=== PATIENT | female | born 1965 | race Caucasian/White ===

== ENCOUNTER 2020-05-14 03:39 | Inpatient (IN) | payer OTHER ==
[~2020-05-14] VITALS: Ht 175.3 cm; Wt 105.0 kg
[~2020-05-14 03:39] MED LIST: ATENOLOL; CEPHALEXIN500 M1 PO; EFFEXOR25 M1 PO; PERCOCET 325 MG1 TA2 PO; TOPAKAX; YAZ 28 3 MG-0.01 TAB PO; ZANTAC
[2020-05-14 05:00] LABS: BASO % 0.3 % (0.0-2.0); EOS # 0.1 (0.0-0.7); EOS % 0.6 % (0-4.0); GRAN # 6.9 (1.4-6.5); GRAN % 78.2 % (42.2-75.2); HEMATOCRIT 38.3 % (37.0-47.0); HEMOGLOBIN 12.2 g/dl (12.5-16.0); LYMPH % 11.3 % (20.0-51.0); MEAN CELL VOLUME 88 fl (80.0-100.0); MEAN CORPUSCULAR HEMOGLOBIN 28 pg (27.0-31.0); MEAN CORPUSCULAR HGB CONC 32 g/dl (33.0-37.0); MEAN PLATELET VOLUME 10.6 fl (7.4-10.4); MONO # 0.8 (0.1-0.6); MONO % 9.1 % (1.7-9.3); PLATELET COUNT 223 K/mm3 (130-400); RED BLOOD COUNT 4.36 M/mm3 (4.10-5.30); REDCELL DISTRIBUTION WIDTH-CV 13.2 % (11.5-14.5)
[2020-05-14 05:14] LABS: ALANINE AMINOTRANSFERASE 204 U/L (4-34); ALBUMIN 4.6 gm/dL (3.5-5.0); ALKALINE PHOSPHATASE 139 U/L (50-136); ANION GAP 8 mmol/L (7-16); AST,SGOT 424 U/L (15-37); BILIRUBIN,TOTAL 0.8 mg/dL (0.0-1.0); BLOOD UREA NITROGEN 27 mg/dL (7-17); CALCIUM 9.6 mg/dL (8.4-10.2); CARBON DIOXIDE 27 mmol/L (22-30); CHLORIDE 103 mmol/L (98-107); CREATININE, serum 0.88 (0.52-1.25); GLUCOSE 150 mg/dL (74-106); POTASSIUM 4.1 mmol/L (3.4-5.0); SODIUM 139 mmol/L (137-145); TOTAL PROTEIN 7.7 gm/dL (6.4-8.2)
[2020-05-14 05:17] LABS: C-REACTIVE PROTEIN < 0.5 mg/dL (0.0-0.9)
[2020-05-14 05:22] LABS: TROPONIN-I < 0.012 ng/mL (0.000-0.035)
[2020-05-14 05:47] LABS: PROTHROMBIN TIME 11.3 SECONDS (9.7-12.8)
[2020-05-14 06:22] LABS: LIPASE 45427 U/L (23-300)
[2020-05-14] MEDS ORDERED: INDERAL LA120 MG PO (09:33)
[2020-05-14] MEDS ORDERED: PRILOSEC 20MG20 MG PO (09:34)
[2020-05-14] MEDS ORDERED: CYMBALTA 60MG60 MG PO (09:35)
[2020-05-14] MEDS ORDERED: WELLBUTRIN XL300 M1 PO (09:35)
[2020-05-14] MEDS ORDERED: ONE-A-DAY ESSE1 EACH PO (09:36)
[2020-05-14] MEDS ORDERED: MELATIN 3 MG-11 TAB PO (09:36)
[2020-05-14 09:56] VITALS: BP 97/80; PULSE 50; TEMP 97.7
--- NOTE | 2020-05-14 09:57 | NUR ---
Patient admitted to room 322-2. Alert & oriented. Med rec reviewed. 5 page completed. Patient Npo, denies nausea. Pain manged at this time. [facility] team made aware of her arrival.
[2020-05-14 11:05] VITALS: BP 100/68; PULSE 53; TEMP 98.1
--- NOTE | 2020-05-14 11:13 | NUR ---
rounded & saw patient
[2020-05-14 13:32] LABS: COLLECTION METHOD CLEAN CATCH
[2020-05-14 13:41] LABS: PH 5 (5-8); SQUAMOUS EPITHELIAL 0-2 /hpf; URINE APPEARANCE Clear; URINE BACTERIA None Seen /hpf; URINE BILIRUBIN Negative (NEGATIVE); URINE BLOOD Negative (NEGATIVE); URINE COLOR Yellow; URINE GLUCOSE Negative (NEGATIVE); URINE KETONE Negative (NEGATIVE); URINE LEUKOCYTE ESTERASE Negative (NEGATIVE); URINE NITRATE Negative (NEGATIVE); URINE PROTEIN(semi-quant) Negative (NEGATIVE); URINE RBC 0-2 /hpf
[2020-05-14 16:24] VITALS: BP 93/69; PULSE 69; TEMP 98.3
--- NOTE | 2020-05-14 18:09 | NUR ---
Patient resting in bed. Spouse at bedside. Denies pain & nausea. IVF as ordered.
[2020-05-15 05:15] VITALS: BP 130/76; PULSE 66; TEMP 98
--- NOTE | 2020-05-15 06:01 | NUR ---
Pt. slept well through the night. Pt. remains A&OX3. Pt. reports headache this am. Denies need for pain meds. Pt. denies further needs, call light within reach.
[2020-05-15 06:58] LABS: ALBUMIN 3.4 gm/dL (3.5-5.0); BILIRUBIN,TOTAL 0.5 mg/dL (0.0-1.0); CALCIUM 8.7 mg/dL (8.4-10.2); CREATININE, serum 0.66 (0.52-1.25); POTASSIUM 3.9 mmol/L (3.4-5.0); TOTAL PROTEIN 5.8 gm/dL (6.4-8.2)
[2020-05-15 07:21] VITALS: BP 119/56; PULSE 74; TEMP 97.4
--- NOTE | 2020-05-15 07:36 | NUR ---
Patient sitting up in bed. She reports slight increase in abdominal pain with increased po intake. She also continues to have headache. Home medication given this am as well as ice tea, hoping caffiene will help. Pain rating 2/10. She denies nausea. Labs improved. Will monitor
[2020-05-15 09:21] LABS: BASO % 0.7 % (0.0-2.0); EOS # 0.1 (0.0-0.7); EOS % 1.7 % (0-4.0); GRAN # 2.6 (1.4-6.5); GRAN % 63.9 % (42.2-75.2); LYMPH % 24.9 % (20.0-51.0); MEAN CELL VOLUME 89 fl (80.0-100.0); MEAN CORPUSCULAR HEMOGLOBIN 29 pg (27.0-31.0); MEAN CORPUSCULAR HGB CONC 32 g/dl (33.0-37.0); MONO # 0.3 (0.1-0.6); MONO % 8.3 % (1.7-9.3); PLATELET COUNT 152 K/mm3 (130-400); RED BLOOD COUNT 3.85 M/mm3 (4.10-5.30); REDCELL DISTRIBUTION WIDTH-CV 13.3 % (11.5-14.5)
[2020-05-15 09:50] LABS: HEMATOCRIT 34.3 % (37.0-47.0)
--- NOTE | 2020-05-15 11:55 | NUR ---
Plan to return home with Yoel as care support. SW met with patient and in room with patients permission to discuss PHI. Patient reports that she resides locally with spouse and does not use any DME. Patient reports that her PCP is Renetta Smith at [facility], and obtains medications at [facility]. will transport home, patient denies having any cocnerns with ADLs. Patient denies having a need for any additional skill or hh services. Patient reports that her is the legal DPOA. Patient denies any PT/OT concerns or needs. SW educated patient on services available to her in community.
[2020-05-15 11:56] VITALS: BP 118/75; PULSE 54; TEMP 98.3
--- NOTE | 2020-05-15 12:10 | NUR ---
Patient feeling better & Ivf decreased per orders. Continues with clears. pain resolved. Will monitor
[2020-05-15 16:48] VITALS: BP 114/82; PULSE 67; TEMP 97.7
--- NOTE | 2020-05-15 17:15 | NUR ---
Spoke to Katrin in Radiology, who checked in on ultrasound not being read. She completed ordered & notifed child welfare consultant radiologist who will get ultrasound read. Informed . Patient resting in bed. Reports increased appetite. continues with clears. Pain managed. Will monitor.
[2020-05-15 21:10] VITALS: BP 131/78; PULSE 57; TEMP 97.9
--- NOTE | 2020-05-15 21:12 | NUR ---
Pt. sitting up in bed at this time. Pt. is A&OX3, assessment complete. IV to lt. ac patent, IV fluids infusing per orders. Pt. denies pain or other needs, call light within reach.
[2020-05-16 06:54] LABS: BASO % 0.5 % (0.0-2.0); EOS # 0.1 (0.0-0.7); EOS % 1.2 % (0-4.0); GRAN # 2.8 (1.4-6.5); GRAN % 64.4 % (42.2-75.2); HEMOGLOBIN 10.3 g/dl (12.5-16.0); MEAN CELL VOLUME 88 fl (80.0-100.0); MEAN CORPUSCULAR HEMOGLOBIN 29 pg (27.0-31.0); MEAN CORPUSCULAR HGB CONC 32 g/dl (33.0-37.0); MEAN PLATELET VOLUME 11.1 fl (7.4-10.4); MONO # 0.5 (0.1-0.6); MONO % 10.4 % (1.7-9.3); PLATELET COUNT 153 K/mm3 (130-400); RED BLOOD COUNT 3.61 M/mm3 (4.10-5.30)
[2020-05-16 06:57] LABS: HEMATOCRIT 31.8 % (37.0-47.0)
[2020-05-16 07:12] LABS: CALCIUM 9.1 mg/dL (8.4-10.2); CREATININE, serum 0.71 (0.52-1.25); POTASSIUM 3.6 mmol/L (3.4-5.0)
[2020-05-16 07:42] VITALS: BP 128/77; PULSE 70; TEMP 98.6
--- NOTE | 2020-05-16 07:55 | NUR ---
Sitting up in bed with eyes open. Alert and oriented x4. Rates pain 1/10 in abd at this time, explains that the pain increases when she eats. Rates pain with and right after eating breakfast a 4/10. Patient says that she will try to get up and ambulate in halls more today. Is hoping to go home. Denies additional needs at this time.
[2020-05-16 11:25] VITALS: BP 126/67; PULSE 65; TEMP 98.1
--- NOTE | 2020-05-16 11:45 | NUR ---
Dr. Roque in room seeing patient and discussing plan for lap kimi tomorrow. Patient and spouse able to ask questions. Patient is clear on the plan, explain that I will bring in consent for her to sign. Patient denies pain or needs at this time.
--- NOTE | 2020-05-16 13:12 | NUR ---
Patient requests to shower at this time. Assisted into shower by BIRGIT Lozano.
--- NOTE | 2020-05-16 14:10 | NUR ---
Review consent for procedure with patient. Denies questions and signs consent. Will place in chart. Patient sitting up in chair watching TV. Spouse in room with the patient. Denies additional needs at this time.
[2020-05-16 15:43] VITALS: BP 113/74; PULSE 62; TEMP 98.1
--- NOTE | 2020-05-16 16:45 | NUR ---
Sitting up in bed watching TV and working on computer. Denies pain or needs at this time. IV fluids decreased to 60mL/hr as ordered.
[2020-05-16 19:36] VITALS: BP 117/74; PULSE 58; TEMP 98.5
--- NOTE | 2020-05-16 20:40 | NUR ---
Pt. sitting up in bed. Pt. is A&OX3, assessment complete. Iv to lt. ac remains patent, IV fluids infusing per orders. Pt. denies pain or other needs, call light within reach.
[2020-05-17] VITALS (12 sets, daily range): BP systolic 110–135; BP diastolic 40–78; PULSE 50–81; TEMP 97.7–98.9
[2020-05-17 06:46] LABS: BASO % 0.5 % (0.0-2.0); EOS # 0.1 (0.0-0.7); EOS % 1.4 % (0-4.0); GRAN # 2.9 (1.4-6.5); GRAN % 65.4 % (42.2-75.2); HEMOGLOBIN 10.2 g/dl (12.5-16.0); LYMPH # 0.9 (1.2-3.4); LYMPH % 20.5 % (20.0-51.0); MEAN CELL VOLUME 88 fl (80.0-100.0); MEAN CORPUSCULAR HEMOGLOBIN 28 pg (27.0-31.0); MEAN CORPUSCULAR HGB CONC 32 g/dl (33.0-37.0); MONO # 0.5 (0.1-0.6); MONO % 11.7 % (1.7-9.3); PLATELET COUNT 156 K/mm3 (130-400); RED BLOOD COUNT 3.61 M/mm3 (4.10-5.30)
[2020-05-17 06:47] LABS: HEMATOCRIT 31.6 % (37.0-47.0)
[2020-05-17 07:02] LABS: ALBUMIN 3.8 gm/dL (3.5-5.0); BILIRUBIN,TOTAL 0.7 mg/dL (0.0-1.0); CREATININE, serum 0.85 (0.52-1.25); POTASSIUM 3.6 mmol/L (3.4-5.0); TOTAL PROTEIN 6.5 gm/dL (6.4-8.2)
--- NOTE | 2020-05-17 10:31 | NUR ---
Patient down to OR.
--- NOTE | 2020-05-17 13:15 | NUR ---
Patient up from OR. alert and oriented. Lap sites x5 with edges well approximated. Denies further needs at this time.
--- NOTE | 2020-05-17 19:01 | NUR ---
Pt is at her bedside.Pt has no concerns at this time. Pt has her call light within reach and her bed is in lowest position.
--- NOTE | 2020-05-17 19:12 | NUR ---
Patient has done well since up from OR. Spouse remains at bedside. Has been up ambulating in room. Continues to deny pain. Denies further needs at this time. Reported off to cage shift manager.
[2020-05-18] VITALS: BP 112/73; PULSE 54; TEMP 98.4
[2020-05-18 03:49] VITALS: BP 134/80; PULSE 59; TEMP 97.8
--- NOTE | 2020-05-18 03:58 | NUR ---
Pt called out with complaints of shoulder and abdomen back. Pt rated her pain at a 8 out of 10. Pt was given IV pain medication at this time.
--- NOTE | 2020-05-18 06:22 | NUR ---
Pt is currently resting in bed. Pt stated that her pain is much better. Pt called out earlier and stated that she was having some really bad pain. On a scale of 1-10 she rated her pain at a 8. Pt was given pain medication at this time. Pt has her call light within reach.
[2020-05-18 06:30] LABS: BASO % 0.1 % (0.0-2.0); GRAN # 8.3 (1.4-6.5); GRAN % 86.7 % (42.2-75.2); LYMPH # 0.7 (1.2-3.4); LYMPH % 7.1 % (20.0-51.0); MEAN CELL VOLUME 90 fl (80.0-100.0); MEAN CORPUSCULAR HGB CONC 32 g/dl (33.0-37.0); MEAN PLATELET VOLUME 11.1 fl (7.4-10.4); MONO # 0.6 (0.1-0.6); MONO % 5.7 % (1.7-9.3); PLATELET COUNT 160 K/mm3 (130-400); RED BLOOD COUNT 3.36 M/mm3 (4.10-5.30)
[2020-05-18 06:31] LABS: HEMATOCRIT 30.3 % (37.0-47.0); HEMOGLOBIN 9.8 g/dl (12.5-16.0); MEAN CORPUSCULAR HEMOGLOBIN 29 pg (27.0-31.0)
[2020-05-18 06:42] LABS: ALBUMIN 3.8 gm/dL (3.5-5.0); BILIRUBIN,TOTAL 0.4 mg/dL (0.0-1.0); CALCIUM 8.6 mg/dL (8.4-10.2); CREATININE, serum 0.84 (0.52-1.25); POTASSIUM 3.8 mmol/L (3.4-5.0); TOTAL PROTEIN 6.6 gm/dL (6.4-8.2)
[2020-05-18 07:40] VITALS: BP 128/75; PULSE 62; TEMP 97.5
[2020-05-18] MEDS ORDERED: NORCO 325 MG-51 TAB PO (08:45)
--- NOTE | 2020-05-18 10:00 | NUR ---
Patient is doing well this morning. Pain controlled with norco. Denies nausea. Patient has been up walking in the hallways. She is waiting for Dr Roque and than she should be able to discharge home. She is tolerating low fat diet without issues. No other changes at this time. Call light within reach.
[2020-05-18] MEDS ORDERED: AMOXICILLIN 8751 TAB PO (10:35)
[2020-05-18 10:40] VITALS: BP 127/63; PULSE 79; TEMP 97.6
--- NOTE | 2020-05-18 11:19 | NUR ---
First visit from the crop grain or livestock farm manager. No needs right now.
--- NOTE | 2020-05-18 12:45 | NUR ---
Patient is discharging home. Expalined antibiotics she is being discharged with and how often to take them. Discharge instructions discussed with patient, no questions verbalized. INT discontinued. Explained when follow up appointments are. Copies of discharge instructions given to patient. All belongings packed up by her . Patient walked out with this nurse. Patient has a prescription for norco that she has to take to the pharmacy to get filled.
== END 2020-05-18 12:45 | disposition home or self-care (01) | DRG 417 ==
LOC: COL.ER 03:39 → SURG 08:49
PROVIDERS: Emergency Medicine; Physician Assistant; Student in an Organized Health Care Education/Training Program; Surgery
PROC: 0FT44ZZ Resection of Gallbladder, Percutaneous Endoscopic Approach (ICD-10-PCS; principal; 2020-05-17 11:00)
DX: K80.00 Calculus of gallbladder with acute cholecystitis without obstruction (principal); K85.10 Biliary acute pancreatitis without necrosis or infection; D64.9 Anemia, unspecified; K21.9 Gastro-esophageal reflux disease without esophagitis; G43.909 Migraine, unspecified, not intractable, without status migrainosus; F32.9 Major depressive disorder, single episode, unspecified; F41.9 Anxiety disorder, unspecified; Z98.84 Bariatric surgery status
CPT/HCPCS: 99222-AI; 99232-AI; 99233-AI; 99239; J0690; J1100; J1170; J1650; J1885; J2270; J2405; J2543; J2704; J3010; J7030; J7120; Q9967

== ENCOUNTER 2022-08-05 18:11 | Emergency (ER) | payer OTHER ==
[~2022-08-05] VITALS: Ht 175.3 cm; Wt 102.3 kg
[~2022-08-05 18:11] MED LIST changes: +AMOXICILLIN 8751 TAB PO; +CYMBALTA 60MG60 MG PO; +INDERAL LA120 MG PO; +MELATIN 3 MG-11 TAB PO; +NORCO 325 MG-51 TAB PO; +ONE-A-DAY ESSE1 EACH PO; +PRILOSEC 20MG20 MG PO; +WELLBUTRIN XL300 M1 PO
[2022-08-05 18:17] VITALS: TEMP 98.1
[2022-08-05 18:33] LABS: BASO % 0.4 % (0.0-2.0); EOS # 0.1 K/mm3 (0.0-0.7); EOS % 0.8 % (0.0-4.0); GRAN # 5.4 K/mm3 (1.4-6.5); GRAN % 70.5 % (42.2-75.2); HEMATOCRIT 29.4 % (37.0-47.0); HEMOGLOBIN 8.5 g/dl (12.5-16.0); LYMPH # 1.5 K/mm3 (1.2-3.4); LYMPH % 19.9 % (20.0-51.0); MEAN CELL VOLUME 77 fl (80.0-100.0); MEAN CORPUSCULAR HEMOGLOBIN 22 pg (27-31); MEAN CORPUSCULAR HGB CONC 29 g/dl (33.0-37.0); MEAN PLATELET VOLUME 10.3 fl (7.4-10.4); MONO # 0.6 K/mm3 (0.1-0.6); MONO % 8.1 % (1.7-9.3); PLATELET COUNT 240 K/mm3 (130-400); RED BLOOD COUNT 3.82 M/mm3 (4.10-5.30); REDCELL DISTRIBUTION WIDTH-CV 15.7 % (11.5-14.5)
[2022-08-05 18:49] LABS: ALANINE AMINOTRANSFERASE 18 U/L (0-55); ALBUMIN 3.6 gm/dL (3.5-5.0); ALKALINE PHOSPHATASE 110 U/L (40-150); ANION GAP 13 mmol/L (7-16); AST,SGOT 24 U/L (5-34); BILIRUBIN,TOTAL 0.3 mg/dL (0.2-1.2); BLOOD UREA NITROGEN 21 mg/dL (10-20); CALCIUM 9.2 mg/dL (8.4-10.2); CARBON DIOXIDE 22 mmol/L (22-29); CHLORIDE 101 mmol/L (98-107); CREATININE, serum 1.14 mg/dL (0.57-1.11); GLUCOSE 100 mg/dL (70-99); SODIUM 136 mmol/L (136-145); TOTAL PROTEIN 7.5 gm/dL (6.2-8.1)
[2022-08-05 18:55] LABS: TROPONIN-I < 0.010 ng/mL (0.00-0.033)
[2022-08-05 20:14] VITALS: BP 108/93; PULSE 60
== END 2022-08-05 20:23 | disposition home or self-care (01) ==
LOC: COL.ER 18:11
PROVIDERS: Physician Assistant
DX: U07.1 COVID-19 (principal); D64.9 Anemia, unspecified; R50.9 Fever, unspecified; R05.9 Cough, unspecified; R06.02 Shortness of breath; R53.83 Other fatigue
CPT/HCPCS: J1885; J7030